=== PATIENT | male | born 1990 | race Caucasian/White ===

== ENCOUNTER 2016-05-11 13:51 | Emergency (ER) | payer OTHER ==
[2016-05-11 14:09] VITALS: BP 116/65
[2016-05-11] MEDS ORDERED: Acetaminophen TAB* 325 MG PO ONE (14:49)
--- NOTE | 2016-05-11 15:00 | UC ---
Knee Pain HPI - HPI Summary HPI Summary: 26 yo male with the onset of left calf pain 4 days ago. No trauma. Pain has since move up to popliteal region and posterior thigh. Worried he has a clot Awoke this AM with cough and mild dyspnea Has felt feverish Has New-Danlos Syndrome Hx of exercise induced asthma - History of Current Complaint Chief Complaint: UCSkin Stated Complaint: LEG COMPLAINT Time Seen by Provider: 05/11/16 14:37 Hx Obtained From: Patient Onset/Duration: Gradual Onset Severity Initially: Mild Severity Currently: Moderate Location Of Injury: no injury Pain Intensity: 6 Pain Scale Used: 0-10 Numeric Character: Aching, Spasmodic Aggravating Factor(s): Weight Bearing Able to Bear Weight: Yes - Allergies/Home Medications Allergies/Adverse Reactions: Allergies Allergy/AdvReac Type Severity Reaction Status Date / Time Shellfish Allergy Allergy Severe Unknown Verified 08/25/15 16:54 Reaction Details Buspirone [From Buspar] Allergy Intermediate See Comment Verified 08/25/15 16:54 Penicillins Allergy Intermediate Hives Verified 08/25/15 16:54 Pramipexole [From Mirapex] Allergy Mild See Comment Verified 08/25/15 16:54 NSAIDs Allergy Bleeding Verified 08/25/15 16:54 Home Medications: Home Medications Cyclobenzaprine TAB* [Flexeril TAB*] 10 mg PO TID 05/11/16 [History Confirmed ] PMH/Surg Hx/FS Hx/Imm Hx Previously Healthy: Yes - New-Danlos Syndrome Endocrine History Of: Denies: Diabetes, Thyroid Disease Cardiovascular History Of: Reports: Cardiac Disorders - tachycardia r/t pain Denies: Hypertension, Pacemaker/ICD Respiratory History Of: Denies: COPD, Asthma GI/ History Of: Denies: Ulcer, Renal Disease Psychological History Of: Reports: Anxiety, Depression - Surgical History Surgical History: Yes Surgery Procedure, Year, and Place: CIRCUMCISION 2011, (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;LYMPHNODE BIOPSY- BENIGN(CAT SCRATCH FEVER) - Family History Known Family History: Positive: Hypertension, Other - cva - Social History Alcohol Use: None Substance Use Type: None, Heroin, Prescribed Substance Use Comment - Amount & Last Used: opana, addict -mulitple drug user Smoking Status (MU): Light Every Day Tobacco Smoker Type: Cigarettes Amount Used/How Often: 1/2-1 ppd Length of Time of Smoking/Using Tobacco: 5 years Have You Smoked in the Last Year: Yes Household Exposure Type: Cigarettes - Immunization History Most Recent Tetanus Shot: unknown Review of Systems Constitutional: Fever, Chills Skin: Negative Eyes: Negative ENT: Negative Respiratory: Shortness Of Breath - slight this am, Cough Cardiovascular: Negative Gastrointestinal: Negative Genitourinary: Negative Motor: Negative Neurovascular: Negative Musculoskeletal: Myalgia Neurological: Negative Psychological: Negative All Other Systems Reviewed And Are Negative: Yes Physical Exam Triage Information Reviewed: Yes Appearance: Well-Appearing, No Pain Distress, Well-Nourished Vital Signs: Initial Vital Signs Temp 100.9 F 05/11/16 14:00 Pulse 146 05/11/16 14:00 Resp 16 05/11/16 14:00 BP 116/65 05/11/16 14:00 Pulse Ox 98 05/11/16 14:00 Eye Exam: Normal ENT: Positive: Hearing grossly normal. Negative: Nasal congestion, Nasal drainage, TMs normal Neck: Positive: Supple, Nontender Respiratory: Positive: Lungs clear, Normal breath sounds, No respiratory distress, No accessory muscle use Cardiovascular: Positive: RRR, No Murmur, Tachycardia Musculoskeletal: Positive: ROM Intact, No Edema, Other: - tender left calf no erthyema or Neurological Exam: Normal Neurological: Positive: Alert Psychological Exam: Normal Skin Exam: Normal Diagnostics - Laboratory Diagnostic Studies Completed/Ordered: pox -98% comment - normal /not hypoxic - EKG Cardiac Rate: Tachycardia Cardiac Rhythm: Sinus: Normal Ectopy: None ST Segment: Non-Specific Knee Pain Course/Dx - Course Course Of Treatment: I advised he have tests to R/O clotting disorder /DVT - Differential Dx/Diagnosis Differential Diagnosis/HQI/PQRI: DVT, Sprain, Strain, Other - sciatica/pneumonia /bronchitis/PE Provider Diagnoses: Left pain of uncertain cause Discharge - Discharge Plan Condition: Stable [facility]
== END 2016-05-11 15:32 | disposition left against medical advice (07) ==
LOC: UCEAST 13:51
DX: M79.605 Pain in left leg (principal); F41.9 Anxiety disorder, unspecified; F17.210 Nicotine dependence, cigarettes, uncomplicated; F19.10 Other psychoactive substance abuse, uncomplicated; Z88.0 Allergy status to penicillin; Z88.6 Allergy status to analgesic agent; Z88.8 Allergy status to other drugs, medicaments and biological substances
CPT/HCPCS: 93005; A9270-GY

== ENCOUNTER 2017-11-22 11:42 | Emergency (ER) | payer OTHER ==
[2017-11-22 12:41] VITALS: BP 127/70
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
[2017-11-22] MEDS ORDERED: Ketorolac INJ* 30 MG/ML 1 ML VIAL IM ONE (13:38)
--- NOTE | 2017-11-22 13:58 | RAD ---
INDICATION: Left ankle injury. TECHNIQUE: 3 views of the left ankle were obtained. FINDINGS: Soft tissue swelling is noted along the anterolateral aspect of the ankle. There is a transverse displaced fracture of the fifth proximal phalanx. IMPRESSION: SOFT TISSUE SWELLING AND DISPLACED FRACTURE OF THE FIFTH PROXIMAL PHALANX.
--- NOTE | 2017-11-22 14:01 | RAD ---
INDICATION: Left foot injury. TECHNIQUE: 3 views of the left foot were obtained. FINDINGS: There is lateral soft tissue swelling. There is a transverse fracture at the base of the fifth proximal phalanx. There is significant lateral and proximal displacement of the proximal fragment. IMPRESSION: TRANSVERSE DISPLACED FRACTURE OF THE BASE OF THE FIFTH PROXIMAL PHALANX.
== END 2017-11-22 14:57 | disposition home or self-care (01) ==
LOC: UCCORT 11:42
DX: S92.352A Displaced fracture of fifth metatarsal bone, left foot, initial encounter for closed fracture (principal); W10.9XXA Fall (on) (from) unspecified stairs and steps, initial encounter; Y93.89 Activity, other specified; Y92.9 Unspecified place or not applicable; Z88.0 Allergy status to penicillin; Z88.8 Allergy status to other drugs, medicaments and biological substances; Z88.6 Allergy status to analgesic agent; F17.210 Nicotine dependence, cigarettes, uncomplicated; F11.20 Opioid dependence, uncomplicated
CPT/HCPCS: 96372; 99213; G0463; J1885

== ENCOUNTER → 2017-12-03 09:21 | Day surgery (SDC) | payer OTHER ==
[~2017-12-03 09:21] MED LIST: Buffered Lidocaine 0.9% SYRIN* 5 ML/SYR SYRINGE INTRADERM ONE; Clindamycin 900 MG IVPREMIX(* 0 MG/0 ML SDV IV ONE; Dexamethasone IV* 4 MG/ML 1 ML (4 MG) IV SLOW PU ONE; Dexamethasone IV* 4 MG/ML 1 ML (4 MG) ONE; Famotidine IV* 10 MG/ML 2 ML (20 mg) IV ONE; Famotidine IV* 10 MG/ML 2 ML (20 mg) ONE
== END | disposition home or self-care (01) ==
LOC: OR 09:21
PROVIDERS: ATTEND Orthopaedic Surgery
DX: S92.352A Displaced fracture of fifth metatarsal bone, left foot, initial encounter for closed fracture (principal); Z53.9 Procedure and treatment not carried out, unspecified reason; X58.XXXA Exposure to other specified factors, initial encounter; Y92.9 Unspecified place or not applicable
CPT/HCPCS: J1100